=== PATIENT | male | born 1970 | race Caucasian/White ===

== ENCOUNTER 2016-04-17 16:35 | Emergency (ER) | payer OTHER ==
[2016-04-17] MEDS ORDERED: ACETAMINOPHEN 500 MG TABLET ONE (16:56)
[2016-04-17] MEDS ORDERED: IBUPROFEN 800 MG TABLET ONE (16:56)
--- NOTE | 2016-04-17 18:00 | RAD ---
Exam: Three-view left hand COMPARISON: None INDICATION: Dog bite to left hand today. Initial encounter. FINDINGS: PA, lateral and oblique views of the left hand were obtained. There is perhaps mild soft tissue swelling about the first metacarpal and dorsal aspect of the wrist. No subcutaneous gas or radiopaque foreign body is identified. No acute fractures identified although subacute scaphoid waist fracture is noted. Alignment is maintained. IMPRESSION: 1. Subacute, nondisplaced scaphoid waist fracture. 2. No radiopaque foreign body or acute osseous abnormality in the left hand.
== END 2016-04-17 17:57 | disposition home or self-care (01) ==
LOC: ED 16:35
DX: S61.452A Open bite of left hand, initial encounter (principal); T14.8 Other injury of unspecified body region; W54.0XXA Bitten by dog, initial encounter; Y92.9 Unspecified place or not applicable
CPT/HCPCS: 73130; 99283 ×2; A9270 ×2